=== PATIENT | male | born 1945 | race Caucasian/White ===

== ENCOUNTER 2021-08-19 10:43 | Outpatient (CLI) | payer MEDICARE, OTHER ==
--- NOTE | 2021-08-19 14:47 | XRAY Report ---
PROCEDURE: Hip w/Pelvis 2-3V LT INDICATIONS: PAIN IN LEFT HIP TECHNIQUE: AP pelvis with lateral view(s) of the bilateral hip(s). COMPARISON: None. FINDINGS: Bones: No fractures or dislocations. The left hip has joint space narrowing and articular surface i rregularity consistent with osteoarthritis. Pelvic ring appears intact. No suspicious bony lesions. Soft tissues: The visualized bowel gas pattern is normal. No suspicious soft tissue calcifications. IMPRESSION: Osteoarthritis of the left hip. Reviewed by: Travis Barron on 08/19/2021 2:46 PM PST Approved by: Travis Barron on 08/19/2021 2:46 PM PST Station ID: [id number]
== END 2021-08-19 10:44 | disposition home or self-care (01) ==
LOC: DI.S 10:43
PROVIDERS: ATTEND Internal Medicine
DX: M16.12 Unilateral primary osteoarthritis, left hip (principal)

== ENCOUNTER 2022-01-29 14:31 | Outpatient (CLI) | payer MEDICARE, OTHER | END 2022-01-29 14:32 | disposition home or self-care (01) | LOC: LAB.S 14:31 | PROVIDERS: ATTEND Family Medicine | DX: Z01.818 Encounter for other preprocedural examination (principal) | CPT/HCPCS: 87640 ==